=== PATIENT | female | born 1950 | race Caucasian/White ===

== ENCOUNTER 2016-08-23 00:11 | Inpatient (IN) | payer MEDICARE, OTHER ==
[2016-08-23 01:04] LABS: HCT 33.5 % (37.0-47.0); MCH 31.2 pg (25.0-31.0); MCV 94.9 fL (78.0-100.0); RBC 3.53 M/uL (4.20-5.40); WBC 13.4 K/uL (4.0-10.5)
[2016-08-23 01:05] LABS: MCHC 32.8 g/dL (32.0-36.0); PLT 294 K/uL (150-400)
[2016-08-23 01:19] LABS: INR 1.12 (0.9-1.2); PTT 22.5 SECONDS (23.2-31.4)
[2016-08-23 02:41] LABS: ALBUMIN 3.5 g/dL (3.4-4.8); BILIRUBIN - TOTAL 0.2 mg/dL (0.1-1.0); CREATININE 0.8 mg/dL (0.5-1.0); GLOBULIN (CALCULATION) 2.7 g/dL (2.2-4.2); POTASSIUM 3.7 mmol/L (3.5-5.1); TOTAL PROTEIN 6.2 g/dL (6.4-8.3)
[2016-08-23 07:13] LABS: HCT 30.6 % (37.0-47.0); HGB 9.8 g/dl (12.5-16.0); MCH 30.6 pg (25.0-31.0); MCV 95.6 fL (78.0-100.0); PLT 247 K/uL (150-400); WBC 6.6 K/uL (4.0-10.5)
[2016-08-23 13:25] LABS: HCT 30.3 % (37.0-47.0); HGB 9.6 g/dl (12.5-16.0); MCH 30.5 pg (25.0-31.0); MCHC 31.7 g/dL (32.0-36.0); MCV 96.2 fL (78.0-100.0); MPV 10.1 fL (6.0-9.5); RBC 3.15 M/uL (4.20-5.40); RDW 12.8 % (11.5-14.0); WBC 5.4 K/uL (4.0-10.5)
[2016-08-24 04:19] LABS: HCT 30.9 % (37.0-47.0); HGB 9.7 g/dl (12.5-16.0); MCHC 31.4 g/dL (32.0-36.0); MCV 95.7 fL (78.0-100.0); MPV 10.2 fL (6.0-9.5); RBC 3.23 M/uL (4.20-5.40); RDW 13.1 % (11.5-14.0); WBC 3.4 K/uL (4.0-10.5)
[2016-08-24 04:34] LABS: CREATININE 0.7 mg/dL (0.5-1.0); MAGNESIUM 2.04 mg/dL (1.40-2.10); POTASSIUM 3.7 mmol/L (3.5-5.1)
[2016-08-25 05:05] LABS: MCH 30.2 pg (25.0-31.0); MCHC 32.1 g/dL (32.0-36.0); MPV 9.9 fL (6.0-9.5); RBC 2.98 M/uL (4.20-5.40); RDW 12.8 % (11.5-14.0); WBC 4.7 K/uL (4.0-10.5)
[2016-08-25 05:19] LABS: CREATININE 0.7 mg/dL (0.5-1.0); POTASSIUM 3.2 mmol/L (3.5-5.1)
[2016-08-26 04:44] LABS: HCT 28.4 % (37.0-47.0); HGB 9.4 g/dl (12.5-16.0); MCH 30.4 pg (25.0-31.0); MCHC 33.1 g/dL (32.0-36.0); MCV 91.9 fL (78.0-100.0); MPV 9.7 fL (6.0-9.5); RBC 3.09 M/uL (4.20-5.40); RDW 12.8 % (11.5-14.0); WBC 4.2 K/uL (4.0-10.5)
--- NOTE | 2016-08-26 13:52 | NUR ---
REVIEWED DISCHARGE INSTRUCTIONS, MEDICATIONS TO STOP VOLTARAN GEL AND MELOXICAM TO FOLLOW UP WITH DR CANO - PT STATES SHE HAS A GASTROINTEROLOIST RECOMENEDED HER TO MAKE A FOLLOW UP APPT WITH THAT ALSO PT HAD CONCERNS REGARDING HER EYE GTTS, NA LEVEL, AND STOOL SOFTNER TOLD PT TO SEE HER OPTHAMOLOIST THAT ORDERED THE EYE GTT, HER GASTROENTEROLOIST ABOUT SUPPLEMENTS FOR ELECTROLYTE INBALANCE CONCERNED DR NGUYEN WROTE FOR MIRALAX PT STATES ALL HER QUESTIONS WERE ANSWERED DENIES PAIN OF DISCOMFORT
== END 2016-08-26 13:56 | disposition home or self-care (01) | DRG 378 ==
LOC: FER 00:11 → FICU 03:20 → FMS 08-25 10:30
PROVIDERS: Emergency Medicine; Internal Medicine Adolescent Medicine; Internal Medicine Cardiovascular Disease; ADMIT Internal Medicine
DX: K29.61 Other gastritis with bleeding (principal); E87.2 Acidosis; F41.9 Anxiety disorder, unspecified; F32.9 Major depressive disorder, single episode, unspecified; E78.5 Hyperlipidemia, unspecified; M19.90 Unspecified osteoarthritis, unspecified site; K58.9 Irritable bowel syndrome, unspecified; G89.29 Other chronic pain; M54.9 Dorsalgia, unspecified; Z85.3 Personal history of malignant neoplasm of breast; H40.9 Unspecified glaucoma; E87.6 Hypokalemia
CPT/HCPCS: 36415; 71010; 80048; 80053; 83690; 83735; 84484; 85610; 85730; 86850; 86900; 86901; 93005; 94010; C9113; J1980; J2270; J2405; J2704

== ENCOUNTER 2021-04-25 18:59 | Emergency (ER) | payer OTHER, MEDICARE | END 2021-04-25 21:40 | disposition home or self-care (01) | LOC: FER 18:59 | DX: S52.502A Unspecified fracture of the lower end of left radius, initial encounter for closed fracture (principal); S52.602A Unspecified fracture of lower end of left ulna, initial encounter for closed fracture; W19.XXXA Unspecified fall, initial encounter; Y92.009 Unspecified place in unspecified non-institutional (private) residence as the place of occurrence of the external cause ==

== ENCOUNTER → 2021-04-27 | Day surgery (SDC) | payer MEDICARE, OTHER | END | disposition home or self-care (01) | LOC: FAS 10:26 | DX: S52.572A Other intraarticular fracture of lower end of left radius, initial encounter for closed fracture (principal); S52.602A Unspecified fracture of lower end of left ulna, initial encounter for closed fracture; W19.XXXA Unspecified fall, initial encounter; F41.9 Anxiety disorder, unspecified; E78.00 Pure hypercholesterolemia, unspecified; Z79.891 Long term (current) use of opiate analgesic; Z79.899 Other long term (current) drug therapy; Z88.5 Allergy status to narcotic agent ==